=== PATIENT | male | born 1995 | race American Indian/Alaskan Native ===

== ENCOUNTER 2019-12-11 18:17 | Emergency (ER) | payer SELFPAY ==
[2019-12-11 19:54] VITALS: BP 121/82
== END 2019-12-11 20:15 | disposition left against medical advice (07) ==
LOC: ED 18:17
DX: S01.81XA Laceration without foreign body of other part of head, initial encounter (principal); Z53.21 Procedure and treatment not carried out due to patient leaving prior to being seen by health care provider; Y04.8XXA Assault by other bodily force, initial encounter; Y93.89 Activity, other specified; Y92.89 Other specified places as the place of occurrence of the external cause; Y99.8 Other external cause status